=== PATIENT | male | born 1975 | race Hispanic/Latino ===

== ENCOUNTER → 2019-01-23 | Outpatient (CLI) | payer OTHER ==
--- NOTE | 2019-01-23 15:52 | Diagnostic Imaging Report ---
EXAMINATION: KNEE RIGHT THREE VIEWS INDICATION: Right knee pain COMPARISON: None FINDINGS: AP, lateral and oblique images of the right knee were obtained. No acute fracture or dislocation. Alignment is anatomic. 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 Moderate suprapatellar joint effusion. IMPRESSION: No acute osseous injury. Moderate patellofemoral compartment predominant tricompartmental degenerative changes. Moderate suprapatellar joint effusion. Signed by: Julia Tenorio MD on 01/23/2019 3:48 PM
== END ==
LOC: RAD 14:58
PROVIDERS: ATTEND Family Medicine
DX: M25.561 Pain in right knee (principal)

== ENCOUNTER → 2024-02-25 | Day surgery (SDC) | payer OTHER ==
[~2024-02-25] MED LIST: ATORVASTATIN CA10 MG PO; LIDOCAINE HCL 2% LOCAL INJ 5 ML SDV VIAL INJ ONE; LOSARTAN POTASS25 MG PO; MIDAZOLAM HCL 2 MG/2 ML VIAL ONE; PROPOFOL IV EMULSION 10 MG/ML 20 ML VIAL ONE
[2024-02-25] MEDS: LACTATED RINGER'S 1,000 ML ONE (10:57)
[2024-02-25 12:45] VITALS: BP 125/90; PULSE 68; RESP 18; O2SAT 99
== END | disposition home or self-care (01) ==
LOC: OR 09:40
PROVIDERS: ATTEND Internal Medicine Gastroenterology
DX: Z12.11 Encounter for screening for malignant neoplasm of colon (principal); K62.89 Other specified diseases of anus and rectum; K57.30 Diverticulosis of large intestine without perforation or abscess without bleeding; K62.5 Hemorrhage of anus and rectum; K64.1 Second degree hemorrhoids; I10 Essential (primary) hypertension; E78.5 Hyperlipidemia, unspecified; Z88.1 Allergy status to other antibiotic agents; Z88.2 Allergy status to sulfonamides; Z01.810 Encounter for preprocedural cardiovascular examination; Z79.899 Other long term (current) drug therapy; Z68.34 Body mass index [BMI] 34.0-34.9, adult
CPT/HCPCS: 45378; 93005; J2003; J2250; J2704; J7121

== ENCOUNTER → 2024-05-11 | Outpatient (REF) | payer OTHER ==
[~2024-05-11] MED LIST changes: -LIDOCAINE HCL 2% LOCAL INJ 5 ML SDV VIAL INJ ONE; -MIDAZOLAM HCL 2 MG/2 ML VIAL ONE; -PROPOFOL IV EMULSION 10 MG/ML 20 ML VIAL ONE
== END ==
LOC: US 14:10
PROVIDERS: ATTEND Nurse Practitioner Family
DX: R74.8 Abnormal levels of other serum enzymes (principal)
CPT/HCPCS: 76705